=== PATIENT | female | born 1990 | race Hispanic/Latino ===

== ENCOUNTER 2016-05-03 18:48 | Emergency (ER) | payer OTHER ==
[~2016-05-03] VITALS: Ht 149.9 cm; Wt 73.6 kg
[~2016-05-03 18:48] MED LIST: FERR-83 PO; HYDR-4150 PO; SUMA50TA2 PO
[2016-05-03 19:10] VITALS: BP 114/81; PULSE 97; RESP 16; O2SAT 99
[2016-05-03 19:58] LABS: COLOR,URINE YELLOW (YELLOW)
[2016-05-03 19:59] LABS: APPEARANCE,URINE HAZY (CLEAR,HAZY); OCCULT BLOOD,URINE LARGE (NEGATIVE); UROBILINOGEN,URINE NORMAL (NORMAL)
--- NOTE | 2016-05-03 20:30 | ED.REPORT ---
HPI- Female Date of Service May 03, 2016 ED Provider: Deon Ambrocio DO A 26 year old female with a history of pyelonephritis presents to the ED complaining of dysuria and fever. These symptoms began today. The pt denies nausea, vomiting, or diarrhea. She also denies abnormal vaginal bleeding, vaginal discharge, or new sexual partners. Nursing Notes Stated Complaint: BLADDER/KIDNEY PAIN Chief Complaint: Female Abdominal Pain Nursing Notes Reviewed: Yes Allergies: Coded Allergies: metoclopramide (Verified Allergy, Unknown, anxious, 05/03/16) Scheduled Ferrous Sulfate (Ferrous Sulfate) 325 Mg Tablet 325 MG PO DAILYWM Scheduled PRN Hydrocodone/Acetaminophen ([place] 5-325 Tablet) 1 Tablet Tablet 1-2 TABLET PO Q4H PRN PRN For Pain Sumatriptan Succinate (Sumatriptan Succinate) 50 Mg Tablet 50 MG PO DAILY PRN PRN Headache may repeat X 1 General Time Seen by MD: 20:29 Chief Complaint Dysuria Hx Obtained From: Patient Arrived By: Walk-in Sudden in Onset?: No Onset Occurred: 9 - 12 hours ago Symptom Duration: Since onset Recent Healthcare: No recent doctor visit, No recent hospitalization Similar Sx Previous: No Past Medical History Past Medical History heartburn UTI pyelonephritis 02/02/11 chronic low back pain Past Surgical History cholecystectomy Smoking History Never Smoker Social History Alcohol Use: Denies alcohol use Drug Use: Denies drug use Occupation lives with boyfriend Ambulatory Status Independent Review of Systems Constitutional: Reports: Fever GI: Denies: Diarrhea, Nausea, Vomiting Female: Reports: Dysuria, Denies: Vaginal bleeding - abnl, Vaginal discharge Skin: Denies Rash Complete sys rev & neg: except as marked. Physical Exam Initial Vital Signs Vital Signs (First) Date Time Temp Pulse Resp B/P Pulse Ox O2 Delivery O2 Flow Rate FiO2 05/03/16 19:10 37.1 97 16 114/81 99 Room Air Initial VS: Reviewed Female Genitourinary: Exam deferred General/Constitutional: Awake, Alert Respiratory / Chest: Atraumatic, Breath sounds NL, Breath sounds = bilat, No respiratory distress Cardiovascular: Heart rate NL, Regular rhythm, Heart sounds NL Abdomen: Atraumatic, Soft, Non-tender Back: Atraumatic, Full range of motion Skin: Atraumatic, Color NL, No rash, Warm, Dry Head / Eyes: Atraumatic, Normocephalic, PERRL, EOMI ENT: Atraumatic, Airway patent, Mucous membranes moist Neck: Atraumatic, Supple, Full range of motion Upper Extremity / MS: Atraumatic, Full range of motion Lower Extremity / Pelvis / MS: Atraumatic, Full range of motion Neurologic: Oriented X3, Speech NL, No motor deficits, No sensory deficits Psychiatric: Affect NL, Mood NL Interpretation & Diagnostics Lab Results Interpretation Test 05/03/16 19:15 Urine Color Yellow (YELLOW) Urine Appearance Hazy (CLEAR,HAZY) Urine pH 6.0 (5.0-8.0) Urine Specific [place] 1.005 (1.003-1.035) Urine Protein Negativemg/dL (NEG,TRACE) Urine Glucose (UA) Negativemg/dL (NEGATIVE) Urine Ketones Negativemg/dL (NEGATIVE) Urine Occult Blood Large (NEGATIVE) Urine Nitrite Positive (NEGATIVE) Urine Bilirubin Negative (NEGATIVE) Urine Urobilinogen Normalmg/dL (NORMAL) Urine Leukocyte Esterase Large (NEGATIVE) Urine RBC 3-10/hpf (0-2) Urine WBC >50/hpf (0-5) Urine Epithelial Cells Moderate/hpf (NONE-MOD) Urine Crystals None seen (NONE SEEN) Urine Bacteria Moderate/hpf (NONE-FEW) Urine Hyaline Casts None/lpf (NONE) Urine Granular Casts None seen (NONE SEEN) Urine Waxy Casts None seen (NONE SEEN) Urine Red Blood Cell Casts None seen (NONE SEEN) Urine White Blood Cell Casts None seen (NONE SEEN) Urine Mucus None seen (None Seen) Urine Trichomonas None seen (NONE SEEN) Urine Yeast None (NONE SEEN) Urinalysis Comment None Urine Culture Reflexed Indicated Pulse Oximetry Interpretation Pulse Oximetry Interpretation: 99% on room air Pulse Oximetry: Pulse Ox normal Re-Eval/Medical Decision Med Decision/Clinical Course Classic urinary tract infection symptoms. No signs of pyelonephritis or sepsis. We will culture her urine. We will place her empirically on Bactrim. Source of Hx: Old records Re-Evaluation/Progress : Time of Eval: 20:29 Patient Status: Condition improved Re-Evaluation/Progress Note: Pt informed of her lab results, diagnosis, and the plan for discharge during the intial interview. The pt understands and agrees with the plan. All questions are addressed at this time. Counseled Regarding: Diagnosis, Lab results, Need for follow-up, When/why to return to ED Discharge & Departure Impression: Primary Impression: UTI (urinary tract infection) Urinary tract infection type: site unspecified Hematuria presence: without hematuria Qualified Code: N39.0 - Urinary tract infection, site not specified Disposition: Home Discharge Condition All VS Reviewed: Yes Condition: Stable Patient Instructions: Urinary Tract Infection in Women (ED) Additional Instructions: Take Bactrim twice daily for five days. If your symptoms have resolved after three days, you may stop taking the Bactrim at that point. Take Motrin as directed for pain. We have taken a urine culture . This will help guide therapy. Call Saturday for the culture results. If the infection is not sensitive to Bactrim we will know which antibiotic to switch you to. Follow up with your primary care physician for further evaluation. Return to the emergency department if you develop any new or worsening symptoms, or if your symptoms have not improved in five days. Referrals: Rocky Zhou ND (PCP) Cherie Attestation Portions of this note were transcribed by Sabrina Helm. I, Dr. Ambrocio personally performed the history, physical exam and medical decision-making; I reviewed and confirmed the accuracy of the information in the transcribed note. Signed by: Cherie Sales, 05/03/2016 and 2114. copies to: Rocky Zhou ND, Todd P DO May 03, 2016 20:30 SABRINA HELM May 03, 2016 20:51
[2016-05-03] MEDS ORDERED: Trimethoprim-Sulfa 160 mg-800 mg Tablet PO ONE (20:45)
== END 2016-05-03 20:56 | disposition home or self-care (01) ==
LOC: SED 18:48
DX: N39.0 Urinary tract infection, site not specified (principal); Z88.8 Allergy status to other drugs, medicaments and biological substances; B96.20 Unspecified Escherichia coli [E. coli] as the cause of diseases classified elsewhere